=== PATIENT | male | born 1950 | race Caucasian/White ===

== ENCOUNTER 2017-03-23 13:45 | Inpatient (IN) ==
[2017-03-23] MEDS ORDERED: MAGNESIUM SULF RIDER 2 GM in PREMIX 1 EACH IV PRN (16:47)
[2017-03-23] MEDS ORDERED: ACETAMINOPHEN 325 MG TABLET PO PRN (16:47)
[2017-03-23] MEDS ORDERED: ZALEPLON 5 MG CAPSULE PO PRN (16:47)
[2017-03-23] MEDS ORDERED: ONDANSETRON 4 MG/2 ML VIAL IV PRN (16:47)
[2017-03-23] MEDS ORDERED: MAGNESIUM SULF RIDER 4 GM in PREMIX 1 EACH IV PRN (16:47)
[2017-03-23] MEDS ORDERED: traMADol 50 MG TABLET PO PRN (16:56)
[2017-03-23] MEDS ORDERED: ENOXAPARIN 40 MG/0.4 ML SYRINGE SUBCUT SCH (17:00)
[2017-03-23] MEDS: FUROSEMIDE 40 MG/4 ML VIAL IV SCH (17:31)
[2017-03-23 17:58] LABS: Basophils # 0.1 10*3/uL (0.0-0.2); Basophils % 0.9 % (0.0-0.8); Eosinophils # 0.1 10*3/uL (0.0-0.87); Hematocrit 48.3 VOL% (42.0-52.0); Hemoglobin 15.5 GM/DL (14.0-18.0); Immature Granulocytes % 0.3 %; Immature Granulocytes Absolute 0.03 #; Lymphocytes # 2.2 10*3/uL (1.4-4.0); Lymphocytes % 20.5 % (21.2-54.2); Mean Corpuscular HGB Conc 32.1 GM/DL (32-36); Mean Corpuscular Hemoglobin 28 PG (27-34); Mean Corpuscular Volume 88.5 FL (87-102); Mean Platelet Volume 11.2 FL (9.6-12.0); Monocytes # 1.1 10*3/uL (0.11-0.8); Monocytes % 10.3 % (1.7-12.7); Neutrophils # 7.2 10*3/uL (1.4-7.4); Platelet Count 260 T/CUMM (130-400); Red Blood Count 5.46 MC/CUMM (3.8-5.5); Red Cell Distribution Width 13.5 % (9.3-17.3); White Blood Count 10.7 T/CUMM (4-12)
[2017-03-23 18:09] LABS: INR 1.8; PT Patient Result 19.5 SECS
[2017-03-23 18:34] LABS: Alanine Aminotransferase 83 U/L (16-61); Albumin 3.8 G/DL (3.4-5.0); Alkaline Phosphatase 71 U/L (45-117); Aspartate Amino Transferase 86 U/L (0-37); Blood Urea Nitrogen 43 MG/DL (7-18); Calcium 9.2 MG/DL (8.5-10.1); Glucose 100 MG/DL (74-106); Osmolality,Calculated 289.4 MOS/KG (273-304); Potassium 5.2 MMOL/L (3.5-5.1); Sodium 140 MMOL/L (136-145); Troponin I Only 0.075 NG/ML (0.00-0.045)
--- NOTE | 2017-03-23 20:12 | XRay Report ---
History: Shortness of breath Date: 03/23/2017 Study: Chest x-ray AP portable Comparison exam: December 11, 2013 chest x-ray There is cardiomegaly. The pulmonary vasculature is upper normal. The mediastinal contours are unremarkable. The lungs and pleural spaces are clear. Numerous old rib fractures are noted on the left. Impression: Cardiomegaly without overt CHF. No definite acute process PROCEDURE INTERPRETED AT [facility] DEPARTMENT OF RADIOLOGY Final Report Signed by: Dr. Becca Lopez
[2017-03-23] MEDS: APIXABAN 5 MG TABLET PO SCH (21:15)
[2017-03-23] MEDS: METOPROLOL TARTRATE 25 MG TABLET PO SCH (21:16)
[2017-03-24 01:16] LABS: Basophils # 0.1 10*3/uL (0.0-0.2); Basophils % 0.7 % (0.0-0.8); Eosinophils # 0.2 10*3/uL (0.0-0.87); Eosinophils % 1.8 % (0.00-10.9); Hematocrit 41.3 VOL% (42.0-52.0); Hemoglobin 13.7 GM/DL (14.0-18.0); Immature Granulocytes % 0.2 %; Immature Granulocytes Absolute 0.02 #; Lymphocytes # 1.9 10*3/uL (1.4-4.0); Lymphocytes % 22.4 % (21.2-54.2); Mean Corpuscular HGB Conc 33.2 GM/DL (32-36); Mean Corpuscular Hemoglobin 29 PG (27-34); Monocytes # 0.9 10*3/uL (0.11-0.8); Monocytes % 10.6 % (1.7-12.7); Neutrophils # 5.5 10*3/uL (1.4-7.4); Neutrophils % 64.3 % (38.7-73.9); Platelet Count 215 T/CUMM (130-400); Red Cell Distribution Width 13.5 % (9.3-17.3); White Blood Count 8.5 T/CUMM (4-12)
[2017-03-24 01:54] LABS: Albumin 3.4 G/DL (3.4-5.0); Bilirubin,Total 1.1 MG/DL (0.2-1.0); Calcium 8.8 MG/DL (8.5-10.1); Osmolality,Calculated 285.7 MOS/KG (273-304); Potassium 3.8 MMOL/L (3.5-5.1); Risk Ratio 2.57; Total Protein 6.3 G/DL (6.4-8.3); VLDL CHOLESTEROL 13.2 MG/DL
[2017-03-24 02:10] LABS: Troponin I Only 0.069 NG/ML (0.00-0.045)
--- NOTE | 2017-03-24 06:34 | XRay Report ---
XR chest 1V portable Indication: Shortness of breath Comparison: Chest x-ray 03/23/2017 Technique: Portable AP chest was performed. Findings: The heart size appears mildly to moderately enlarged, stable. The mediastinal contour and hilar structures demonstrate no significant abnormalities. Lungs are clear. Bones and soft tissues demonstrate no evidence of acute pathology. Multiple remote posterior left rib fractures are stable. Impression: 1. No evidence of acute pathology. 03/24/2017 6:31 AM PROCEDURE INTERPRETED AT [facility] DEPARTMENT OF RADIOLOGY Final Report Signed by: Dr. Miquel Medina
--- NOTE | 2017-03-24 07:58 | EKG Report ---
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
[2017-03-24] MEDS: APIXABAN 5 MG TABLET PO SCH ×2 (09:10→20:23)
[2017-03-24] MEDS: LISINOPRIL 5 MG TABLET PO SCH (09:10)
[2017-03-24] MEDS: FUROSEMIDE 40 MG/4 ML VIAL IV SCH ×2 (09:11→16:10)
[2017-03-24] MEDS: PANTOPRAZOLE 40 MG TABLET PO SCH (09:11)
[2017-03-24] MEDS: POTASSIUM CHLORIDE 20 MEQ TABLET PO SCH (09:11)
[2017-03-24] MEDS: METOPROLOL TARTRATE 25 MG TABLET PO SCH ×2 (09:11→20:24)
[2017-03-24] MEDS: MAGNESIUM OXIDE 400 MG TABLET PO SCH (09:11)
--- NOTE | 2017-03-24 17:10 | Cardiology Progress Note ---
<Graciela Saleh E - Last Filed: 03/24/17 17:01> Assessment and Plan - Time spent with patient Time spent with patient: Less than 30 minutes (1) CHF (congestive heart failure) Status: Acute Assessment and plan: EF 10-15% per recent echocardiogram. Patient is receiving lasix, beta nettie, and floyd inhibitor. Creatinine is slowly improving and is down to 2.4 from 2.7 yesterday. Will continue to monitor BMP. Continue current plan of care. Current Visit: Yes (2) Pre-syncope Status: Acute Assessment and plan: Currently denies any further pre-syncopal episodes. Will continue to monitor. Current Visit: Yes (3) Atrial fibrillation Status: Acute Assessment and plan: Continue Eliquis. Will check hemoccult stools. Patient reports has noticed recent hematochezia. H&H stable. No signs of overt bleeding at this time. Current Visit: Yes (4) Mitral regurgitation Status: Acute Assessment and plan: Echocardiogram done 03/22/17 revealed mild to moderate mitral regurgitation. Current Visit: Yes (5) Aortic insufficiency Status: Acute Assessment and plan: Echocardiogram done 03/22/17 revealed mild aortic insufficiency. 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 Royal was sent from Dr. Harvey's clinic yesterday afternoon for further evaluation and management of severe LV dysfunction. He was noted to have EF of 10-15% per recent echocardiogram. He has never undergone heart catheterization and will need this done at some point in the future. His creatinine is currently 2.4 and he has difficulties lying flat. We will continue to maximize his medical therapy and plan for heart catheterization in the near future. Today , he is borderline hypotensive and is in atrial fibrillation with moderately well controlled rate. Exam (Progress Note) - Constitutional Vitals: Period Temp Pulse Resp BP Sys/Haley Pulse Ox Last 24 Hr 97.5 F-98.4 F 68-115 18-20 100-124/60-80 94-99 Exam: General: Present: Appears Well, No Apparent Distress. Pleasant and cooperative. Appears comfortable. HEENT: Present: PERRL, Normocephaly, atraumatic. Mucus Membranes Moist. No jaundice noted. Conjunctiva moist and clear, sclerae anicteric Neck: Present: Supple Neck, Midline Trachea, No Masses, No Bruit, No tenderness Cardiac: Present: Regular Rate and Rhythm, No Murmur Lungs: Present: Clear to auscultation bilaterally, no wheeze, rhonchi, rales. Neuro: Present: Awake, alert, and oriented x3. Moves all extremities well without hemiparesis or paralysis. Grossly Intact. Absent: Resting Tremor, Essential Tremor Abdomen: Present: Soft, Active Bowel Sounds, No Masses, Non-Tender, nondistended. No abdominal bruit or thrill noted. Skin: Present: Clear. Absent: Rash, No skin breakdown. Back: Normal inspection, no vertebral tenderness. Musculoskeletal: Present: No Fluid Collection, No Pain, Normal Range of Motion Extremities: Present: Normal Gait, No Clubbing, No Cyanosis, Upper Extr. Pulses 2+, Lower Extr. Pulses 2+, No edema. Capillary refill less than 3 seconds. Result/EKG - Labs CBC & BMP: 03/24/17 01:01 03/24/17 01:01 Lab Results: I have reviewed the past 24 hour labs Labs: Laboratory Results - last 24 hr 03/23/17 03/23/17 03/23/17 17:34 17:34 17:34 WBC 10.7 RBC 5.46 Hgb 15.5 Hct 48.3 MCV 88.5 MCH 28 MCHC 32.1 RDW 13.5 Plt Count 260 MPV 11.2 Neut % (Auto) 67.0 Lymph % (Auto) 20.5 L [place] % (Auto) 10.3 Eos % (Auto) 1.0 Baso % (Auto) 0.9 H Neut # (Auto) 7.2 Lymph # (Auto) 2.2 [place] # (Auto) 1.1 H Eos # (Auto) 0.1 Baso # (Auto) 0.1 Immature Gran % 0.3 Nucleated RBC % 0.0 Immature Gran # 0.03 Nucleated RBCs # 0.00 INR PT Patient/Control Mix Sodium 140 Potassium 5.2 H Chloride 102 Carbon Dioxide 27 Anion Gap 16.2 H BUN 43 H Creatinine 2.70 H GFR Calculation 27 BUN/Creatinine Ratio 15.00 Glucose 100 Calculated Osmolality 289.4 Calcium 9.2 Magnesium Total Bilirubin 1.30 H AST 86 H ALT 83 H Alkaline Phosphatase 71 Total Creatine Kinase 98 CK-MB (CK-2) 3.0 Troponin I 0.075 H B-Natriuretic Peptide 1088 H Total Protein 7.0 Albumin 3.8 Globulin 3.2 Albumin/Globulin Ratio 1.1 Triglycerides Cholesterol LDL Cholesterol VLDL Cholesterol HDL Cholesterol Heart Disease Risk Ratio TSH 3rd Generation 4.490 H 03/23/17 03/23/17 03/24/17 17:34 23:54 01:01 WBC RBC Hgb Hct MCV MCH MCHC RDW Plt Count MPV Neut % (Auto) Lymph % (Auto) [place] % (Auto) Eos % (Auto) Baso % (Auto) Neut # (Auto) Lymph # (Auto) [place] # (Auto) Eos # (Auto) Baso # (Auto) Immature Gran % Nucleated RBC % Immature Gran # Nucleated RBCs # INR 1.8 PT Patient/Control Mix 19.5 Sodium Potassium Chloride Carbon Dioxide Anion Gap BUN Creatinine GFR Calculation BUN/Creatinine Ratio Glucose Calculated Osmolality Calcium Magnesium 2.0 Total Bilirubin AST ALT Alkaline Phosphatase Total Creatine Kinase 71 D CK-MB (CK-2) 2.1 Troponin I 0.069 H B-Natriuretic Peptide Total Protein Albumin Globulin Albumin/Globulin Ratio Triglycerides Cholesterol LDL Cholesterol VLDL Cholesterol HDL Cholesterol Heart Disease Risk Ratio TSH 3rd Generation 03/24/17 03/24/17 03/24/17 01:01 01:01 01:01 WBC 8.5 RBC 4.80 Hgb 13.7 L Hct 41.3 L MCV 86.0 L MCH 29 MCHC 33.2 RDW 13.5 Plt Count 215 MPV 11.0 Neut % (Auto) 64.3 Lymph % (Auto) 22.4 [place] % (Auto) 10.6 Eos % (Auto) 1.8 Baso % (Auto) 0.7 Neut # (Auto) 5.5 Lymph # (Auto) 1.9 [place] # (Auto) 0.9 H Eos # (Auto) 0.2 Baso # (Auto) 0.1 Immature Gran % 0.2 Nucleated RBC % 0.0 Immature Gran # 0.02 Nucleated RBCs # 0.00 INR PT Patient/Control Mix Sodium 138 Potassium 3.8 Chloride 102 Carbon Dioxide 27 Anion Gap 12.8 BUN 46 H Creatinine 2.40 H GFR Calculation 31 BUN/Creatinine Ratio 19.00 Glucose 78 Calculated Osmolality 285.7 Calcium 8.8 Magnesium Total Bilirubin 1.10 H AST 65 H ALT 70 H Alkaline Phosphatase 62 Total Creatine Kinase CK-MB (CK-2) Troponin I B-Natriuretic Peptide 1066 H Total Protein 6.3 L Albumin 3.4 Globulin 2.9 Albumin/Globulin Ratio 1.1 Triglycerides 66 Cholesterol 95 LDL Cholesterol 54.0 VLDL Cholesterol 13.2 HDL Cholesterol 37 L Heart Disease Risk Ratio 2.57 TSH 3rd Generation 03/24/17 09:18 WBC RBC Hgb Hct MCV MCH MCHC RDW Plt Count MPV Neut % (Auto) Lymph % (Auto) [place] % (Auto) Eos % (Auto) Baso % (Auto) Neut # (Auto) Lymph # (Auto) [place] # (Auto) Eos # (Auto) Baso # (Auto) Immature Gran % Nucleated RBC % Immature Gran # Nucleated RBCs # INR PT Patient/Control Mix Sodium Potassium Chloride Carbon Dioxide Anion Gap BUN Creatinine GFR Calculation BUN/Creatinine Ratio Glucose Calculated Osmolality Calcium Magnesium Total Bilirubin AST ALT Alkaline Phosphatase Total Creatine Kinase 73 CK-MB (CK-2) 2.1 Troponin I 0.090 H D B-Natriuretic Peptide Total Protein Albumin Globulin Albumin/Globulin Ratio Triglycerides Cholesterol LDL Cholesterol VLDL Cholesterol HDL Cholesterol Heart Disease Risk Ratio TSH 3rd Generation - EKG EKG results: interpreted by me EKG shows: atrial fibrillation <Jo Ann Hermosillo - Last Filed: 03/24/17 18:05> Cardiology - PN: Subj Interval history: I have personally interviewed and evaluated the patient, reviewed the chart and discussed medical decision-making with practitioner Delfino. I have read this note and agree with her documentation here in. His symptoms are much improved today, but he still cannot lay supine for long period of time. We will continue to optimize him from heart failure standpoint and he will eventually require cardiac catheterization. Exam (Progress Note) - Constitutional Vitals: Period Temp Pulse Resp BP Sys/Haley Pulse Ox Last 24 Hr 97.5 F-98.4 F 68-115 18-20 100-124/60-80 94-99 Result/EKG - Labs CBC & BMP: 03/24/17 01:01 03/24/17 01:01 Labs: Laboratory Results - last 24 hr 03/23/17 03/23/17 03/23/17 17:34 17:34 17:34 WBC RBC Hgb Hct MCV MCH MCHC RDW Plt Count MPV Neut % (Auto) Lymph % (Auto) [place] % (Auto) Eos % (Auto) Baso % (Auto) Neut # (Auto) Lymph # (Auto) [place] # (Auto) Eos # (Auto) Baso # (Auto) Immature Gran % Nucleated RBC % Immature Gran # Nucleated RBCs # INR 1.8 PT Patient/Control Mix 19.5 Sodium 140 Potassium 5.2 H Chloride 102 Carbon Dioxide 27 Anion Gap 16.2 H BUN 43 H Creatinine 2.70 H GFR Calculation 27 BUN/Creatinine Ratio 15.00 Glucose 100 Calculated Osmolality 289.4 Calcium 9.2 Magnesium Total Bilirubin 1.30 H AST 86 H ALT 83 H Alkaline Phosphatase 71 Total Creatine Kinase 98 CK-MB (CK-2) 3.0 Troponin I 0.075 H B-Natriuretic Peptide 1088 H Total Protein 7.0 Albumin 3.8 Globulin 3.2 Albumin/Globulin Ratio 1.1 Triglycerides Cholesterol LDL Cholesterol VLDL Cholesterol HDL Cholesterol Heart Disease Risk Ratio TSH 3rd Generation 4.490 H 03/23/17 03/24/17 03/24/17 23:54 01:01 01:01 WBC 8.5 RBC 4.80 Hgb 13.7 L Hct 41.3 L MCV 86.0 L MCH 29 MCHC 33.2 RDW 13.5 Plt Count 215 MPV 11.0 Neut % (Auto) 64.3 Lymph % (Auto) 22.4 [place] % (Auto) 10.6 Eos % (Auto) 1.8 Baso % (Auto) 0.7 Neut # (Auto) 5.5 Lymph # (Auto) 1.9 [place] # (Auto) 0.9 H Eos # (Auto) 0.2 Baso # (Auto) 0.1 Immature Gran % 0.2 Nucleated RBC % 0.0 Immature Gran # 0.02 Nucleated RBCs # 0.00 INR PT Patient/Control Mix Sodium Potassium Chloride Carbon Dioxide Anion Gap BUN Creatinine GFR Calculation BUN/Creatinine Ratio Glucose Calculated Osmolality Calcium Magnesium 2.0 Total Bilirubin AST ALT Alkaline Phosphatase Total Creatine Kinase 71 D CK-MB (CK-2) 2.1 Troponin I 0.069 H B-Natriuretic Peptide Total Protein Albumin Globulin Albumin/Globulin Ratio Triglycerides Cholesterol LDL Cholesterol VLDL Cholesterol HDL Cholesterol Heart Disease Risk Ratio TSH 3rd Generation 03/24/17 03/24/17 03/24/17 01:01 01:01 09:18 WBC RBC Hgb Hct MCV MCH MCHC RDW Plt Count MPV Neut % (Auto) Lymph % (Auto) [place] % (Auto) Eos % (Auto) Baso % (Auto) Neut # (Auto) Lymph # (Auto) [place] # (Auto) Eos # (Auto) Baso # (Auto) Immature Gran % Nucleated RBC % Immature Gran # Nucleated RBCs # INR PT Patient/Control Mix Sodium 138 Potassium 3.8 Chloride 102 Carbon Dioxide 27 Anion Gap 12.8 BUN 46 H Creatinine 2.40 H GFR Calculation 31 BUN/Creatinine Ratio 19.00 Glucose 78 Calculated Osmolality 285.7 Calcium 8.8 Magnesium Total Bilirubin 1.10 H AST 65 H ALT 70 H Alkaline Phosphatase 62 Total Creatine Kinase 73 CK-MB (CK-2) 2.1 Troponin I 0.090 H D B-Natriuretic Peptide 1066 H Total Protein 6.3 L Albumin 3.4 Globulin 2.9 Albumin/Globulin Ratio 1.1 Triglycerides 66 Cholesterol 95 LDL Cholesterol 54.0 VLDL Cholesterol 13.2 HDL Cholesterol 37 L Heart Disease Risk Ratio 2.57 TSH 3rd Generation
[2017-03-24] MEDS: ACETYLCYSTEINE 600 MG CAPSULE PO SCH (20:23)
[2017-03-24] MEDS: DOCUSATE SODIUM 100 MG CAPSULE PO PRN (20:24)
[2017-03-25 06:37] LABS: Basophils # 0.1 10*3/uL (0.0-0.2); Basophils % 1.1 % (0.0-0.8); Eosinophils # 0.2 10*3/uL (0.0-0.87); Eosinophils % 3.2 % (0.00-10.9); Hematocrit 43.3 VOL% (42.0-52.0); Hemoglobin 14.2 GM/DL (14.0-18.0); Immature Granulocytes % 0.3 %; Immature Granulocytes Absolute 0.02 #; Lymphocytes # 2.2 10*3/uL (1.4-4.0); Lymphocytes % 29.9 % (21.2-54.2); Mean Corpuscular HGB Conc 32.8 GM/DL (32-36); Mean Corpuscular Hemoglobin 29 PG (27-34); Mean Corpuscular Volume 86.8 FL (87-102); Monocytes # 0.8 10*3/uL (0.11-0.8); Neutrophils % 54.5 % (38.7-73.9); Platelet Count 219 T/CUMM (130-400); Red Blood Count 4.99 MC/CUMM (3.8-5.5); Red Cell Distribution Width 13.3 % (9.3-17.3); White Blood Count 7.3 T/CUMM (4-12)
[2017-03-25 07:09] LABS: Calcium 8.6 MG/DL (8.5-10.1); Magnesium 2.2 MG/DL (1.8-2.4); Osmolality,Calculated 286.5 MOS/KG (273-304); Potassium 3.6 MMOL/L (3.5-5.1)
[2017-03-25] MEDS: DOCUSATE SODIUM 100 MG CAPSULE PO PRN (08:51)
[2017-03-25] MEDS: ACETYLCYSTEINE 600 MG CAPSULE PO SCH ×2 (08:51→20:45)
[2017-03-25] MEDS: MAGNESIUM OXIDE 400 MG TABLET PO SCH (08:51)
[2017-03-25] MEDS: POTASSIUM CHLORIDE 20 MEQ TABLET PO SCH (08:52)
[2017-03-25] MEDS: PANTOPRAZOLE 40 MG TABLET PO SCH (08:52)
[2017-03-25] MEDS: METOPROLOL TARTRATE 25 MG TABLET PO SCH ×2 (08:52→20:45)
[2017-03-25] MEDS: FUROSEMIDE 40 MG/4 ML VIAL IV SCH ×2 (08:52→16:16)
[2017-03-25] MEDS: LISINOPRIL 5 MG TABLET PO SCH (08:52)
[2017-03-25] MEDS: APIXABAN 5 MG TABLET PO SCH ×2 (08:52→20:46)
--- NOTE | 2017-03-25 11:32 | Cardiology Progress Note ---
<Graciela Saleh E - Last Filed: 03/25/17 11:27> Assessment and Plan - Time spent with patient Time spent with patient: Less than 30 minutes (1) CHF (congestive heart failure) Status: Acute Assessment and plan: EF 10-15% per recent echocardiogram. Patient is receiving lasix, beta nettie, and ann inhibitor. Medication adjustments are limited due to borderline hypotension. Creatinine remains at 2.4 today. Will continue to monitor BMP. Continue current plan of care. Current Visit: Yes (2) Pre-syncope Status: Acute Assessment and plan: Currently denies any further pre-syncopal episodes. Will continue to monitor. Current Visit: Yes (3) Atrial fibrillation Status: Acute Assessment and plan: Continue Eliquis. Will check hemoccult stools. Patient reports has noticed recent hematochezia. H&H stable. No signs of overt bleeding at this time. Current Visit: Yes (4) Mitral regurgitation Status: Acute Assessment and plan: Echocardiogram done 03/22/17 revealed mild to moderate mitral regurgitation. Current Visit: Yes (5) Aortic insufficiency Status: Acute Assessment and plan: Echocardiogram done 03/22/17 revealed mild aortic insufficiency. 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 Royal was sent from Dr. Harvey's clinic on 03/23/2017 for further evaluation and management of severe LV dysfunction. He was noted to have an EF of 10-15% per recent echocardiogram. He tells me that recently he has been unable to do activities that he previously had no trouble doing. The plan is to optimize him from a heart failure standpoint and plan on cardiac catheterization sometime in the near future. He does have some renal insufficiency with creatinine hovering around 2.4. He continues to have some difficulties with lying flat for an extended period of time. We will continue to maximize medical therapy. His borderline hypotension limits the medications we are able to use. Is currently on low-dose ANN inhibitor, beta-nettie, Lasix , and Eliquis for chronic anticoagulation for his atrial fibrillation. He remains in atrial fibrillation with well-controlled rate. Exam (Progress Note) - Constitutional Vitals: Period Temp Pulse Resp BP Sys/Haley Pulse Ox Last 24 Hr 97 F-98.1 F 82-112 16-20 95-135/52-79 94-99 Exam: General: Present: Appears Well, No Apparent Distress. Pleasant and cooperative. Appears comfortable. HEENT: Present: PERRL, Normocephaly, atraumatic. Mucus Membranes Moist. No jaundice noted. Conjunctiva moist and clear, sclerae anicteric Neck: Present: Supple Neck, Midline Trachea, No Masses, No Bruit, No tenderness Cardiac: Present: Regular Rate and Rhythm, No Murmur Lungs: Present: Clear to auscultation bilaterally, no wheeze, rhonchi, rales. Neuro: Present: Awake, alert, and oriented x3. Moves all extremities well without hemiparesis or paralysis. Grossly Intact. Absent: Resting Tremor, Essential Tremor Abdomen: Present: Soft, Active Bowel Sounds, No Masses, Non-Tender, nondistended. No abdominal bruit or thrill noted. Skin: Present: Clear. Absent: Rash, No skin breakdown. Back: Normal inspection, no vertebral tenderness. Musculoskeletal: Present: No Fluid Collection, No Pain, Normal Range of Motion Extremities: Present: Normal Gait, No Clubbing, No Cyanosis, Upper Extr. Pulses 2+, Lower Extr. Pulses 2+, No edema. Capillary refill less than 3 seconds. Result/EKG - Labs CBC & BMP: 03/25/17 05:30 03/25/17 05:30 Lab Results: I have reviewed the past 24 hour labs Labs: Laboratory Results - last 24 hr 03/25/17 03/25/17 05:30 05:30 WBC 7.3 RBC 4.99 Hgb 14.2 Hct 43.3 MCV 86.8 L MCH 29 MCHC 32.8 RDW 13.3 Plt Count 219 MPV 11.0 Neut % (Auto) 54.5 Lymph % (Auto) 29.9 [place] % (Auto) 11.0 Eos % (Auto) 3.2 Baso % (Auto) 1.1 H Neut # (Auto) 4.0 Lymph # (Auto) 2.2 [place] # (Auto) 0.8 Eos # (Auto) 0.2 Baso # (Auto) 0.1 Immature Gran % 0.3 Nucleated RBC % 0.0 Immature Gran # 0.02 Nucleated RBCs # 0.00 Sodium 139 Potassium 3.6 Chloride 97 L Carbon Dioxide 32 Anion Gap 13.6 BUN 42 H Creatinine 2.40 H GFR Calculation 30 BUN/Creatinine Ratio 17.00 Glucose 75 Calculated Osmolality 286.5 Calcium 8.6 Magnesium 2.2 - EKG EKG results: interpreted by me EKG shows: atrial fibrillation <BayJo Ann - Last Filed: 03/25/17 16:12> Cardiology - PN: Subj Interval history: I have personally interviewed and evaluated the patient, reviewed the chart and discussed medical decision-making with practitioner Delfino. I have read this note and agree with her documentation here in. The patient in general is just feeling poorly, feels somewhat dizzy. I checked orthostatic vital signs, he was not orthostatic but his systolic blood pressure was in the high 90s initially. It is possible that we have diuresed him a little too rapidly. We are going to decrease his diuretic therapy. I am also going to stop his lisinopril due to the hypotension and see if this improves his symptoms of dizziness. We are treating him with Mucomyst for anticipation of left heart catheterization. Exam (Progress Note) - Constitutional Vitals: Period Temp Pulse Resp BP Sys/Haley Pulse Ox Last 24 Hr 96.9 F-97.9 F 82-109 16-18 94-135/52-76 94-99 Result/EKG - Labs CBC & BMP: 03/25/17 05:30 03/25/17 05:30 Labs: Laboratory Results - last 24 hr 03/25/17 03/25/17 05:30 05:30 WBC 7.3 RBC 4.99 Hgb 14.2 Hct 43.3 MCV 86.8 L MCH 29 MCHC 32.8 RDW 13.3 Plt Count 219 MPV 11.0 Neut % (Auto) 54.5 Lymph % (Auto) 29.9 [place] % (Auto) 11.0 Eos % (Auto) 3.2 Baso % (Auto) 1.1 H Neut # (Auto) 4.0 Lymph # (Auto) 2.2 [place] # (Auto) 0.8 Eos # (Auto) 0.2 Baso # (Auto) 0.1 Immature Gran % 0.3 Nucleated RBC % 0.0 Immature Gran # 0.02 Nucleated RBCs # 0.00 Sodium 139 Potassium 3.6 Chloride 97 L Carbon Dioxide 32 Anion Gap 13.6 BUN 42 H Creatinine 2.40 H GFR Calculation 30 BUN/Creatinine Ratio 17.00 Glucose 75 Calculated Osmolality 286.5 Calcium 8.6 Magnesium 2.2
[2017-03-26 04:39] LABS: Basophils # 0.1 10*3/uL (0.0-0.2); Basophils % 0.9 % (0.0-0.8); Eosinophils # 0.3 10*3/uL (0.0-0.87); Eosinophils % 3.6 % (0.00-10.9); Hematocrit 42.7 VOL% (42.0-52.0); Hemoglobin 14.1 GM/DL (14.0-18.0); Immature Granulocytes % 0.4 %; Immature Granulocytes Absolute 0.03 #; Lymphocytes # 2.3 10*3/uL (1.4-4.0); Lymphocytes % 32.5 % (21.2-54.2); Mean Corpuscular Hemoglobin 28 PG (27-34); Mean Corpuscular Volume 85.1 FL (87-102); Mean Platelet Volume 10.6 FL (9.6-12.0); Monocytes # 0.8 10*3/uL (0.11-0.8); Monocytes % 11.4 % (1.7-12.7); Neutrophils # 3.6 10*3/uL (1.4-7.4); Neutrophils % 51.2 % (38.7-73.9); Platelet Count 206 T/CUMM (130-400); Red Blood Count 5.02 MC/CUMM (3.8-5.5); Red Cell Distribution Width 13.2 % (9.3-17.3)
[2017-03-26 05:09] LABS: Calcium 8.8 MG/DL (8.5-10.1); Magnesium 2.3 MG/DL (1.8-2.4); Potassium 3.5 MMOL/L (3.5-5.1)
[2017-03-26 05:11] LABS: % Iron Saturation 12.6 % (18-50); Free T4 (Free Thyroxine) 1.26 NG/DL (0.76-1.46)
[2017-03-26 06:33] LABS: Folate 6.1 NG/ML (5.4-24.0)
--- NOTE | 2017-03-26 08:11 | EKG Report ---
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
[2017-03-26] MEDS ORDERED: FUROSEMIDE 80 MG TABLET PO SCH (09:00)
[2017-03-26] MEDS: APIXABAN 5 MG TABLET PO SCH (09:50)
[2017-03-26] MEDS: POTASSIUM CHLORIDE 20 MEQ TABLET PO SCH (09:52)
[2017-03-26] MEDS: MAGNESIUM OXIDE 400 MG TABLET PO SCH (09:52)
[2017-03-26] MEDS: METOPROLOL TARTRATE 25 MG TABLET PO SCH (09:52)
[2017-03-26] MEDS: PANTOPRAZOLE 40 MG TABLET PO SCH (09:53)
[2017-03-26] MEDS ORDERED: APIXABAN 5 MG TABLET PO ONE (10:23)
[2017-03-26] MEDS: ACETYLCYSTEINE 600 MG CAPSULE PO SCH (10:24)
--- NOTE | 2017-03-26 11:09 | Discharge Summary ---
Hospital Course - Hospital Course Hospital Course: The patient is a 66-year-old male with history of atrial fibrillation, who was admitted to the hospital by Dr. 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 He had failed outpatient therapy. The patient was admitted and diuresed, responded very quickly to the intravenous Lasix. Clinically was much improved although he did begin to experience some dizziness and weakness. We discontinued his ANN inhibitor and his symptoms appear to improve. He was noted to have some renal insufficiency, the chronicity is unknown. It improved mildly during his hospital stay. We discussed maintaining him in the hospital until Tuesday for cardiac catheterization but the patient would like to go home because he does not like being in the hospital and thinks that this is worse for him. He is not having any orthopnea at this point and certainly has no peripheral edema. He is being discharged home in stable condition and we will have him call the clinic on Tuesday to determine the timing of his cardiac catheterization with Dr. Harvey. Discharge Plan - Discharge Data Disposition: Disch To Home/Self Care Condition at Discharge: Stable Hygiene: no restrictions Driving: no restrictions - Discharge Medications New Furosemide Tab [Lasix Tab] 80 mg PO DAILY #30 tablet Continue Apixaban [Eliquis] 5 mg PO BID Omeprazole 20 mg PO DAILY Glucosamine 500 mg PO BID Potassium Chloride 10 meq PO BID Metoprolol Tartrate Tab [Lopressor Tab] 25 mg PO BID Tramadol HCl [Tramadol Tab] 50 mg PO Q6H PRN PRN Reason: Pain Magnesium 250 mg PO DAILY Discontinued Furosemide Tab [Lasix Tab] 40 mg PO DAILY - Follow Up or Referral Follow Up: Sebastian Harvey MD [Physician] - 1 Week - Forms/Instructions Additional Discharge Instructions: BMP and Mg prior to f/u visit with Dr. Harvey Exam - Constitutional Vitals: Period Temp Pulse Resp BP Sys/Haley Pulse Ox Last 24 Hr 96.9 F-98.2 F 88-119 16-20 90-113/48-73 91-99 Exam: General appearance: normal weight, no acute distress - Head Head exam: Present: normal inspection, normocephalic, atraumatic. Absent: hematoma, laceration - Eye Eye exam: Present: EOMI. Absent: conjunctival injection, nystagmus, periorbital swelling, scleral icterus, laceration to eyelids Pupils: Present: PERRL. Absent: constricted, dilated, fixed, irregular, unequal - ENT ENT exam: Present: normal exam, normal external ear exam - Neck Neck exam: Present: normal inspection. Absent: lymphadenopathy, meningismus, tenderness, thyromegaly - Respiratory Respiratory exam: Present: clear to auscultation bilaterally. Absent: accessory muscle use, chest wall tenderness - Cardiovascular Cardiovascular exam: Present: regular rate and rhythm. Absent: carotid bruit, gallop, JVD, rubs - GI/Abdominal GI/Abdominal exam: Present: normal bowel sounds, soft. Absent: distended, firm , guarding, hernia, mass, tenderness, rebound. - Extremities Exam Extremities exam: Present: normal inspection, normal capillary refill. Absent: calf tenderness, edema - Back Exam Back exam: Present: normal inspection. Absent: muscle spasm, vertebral tenderness - Neurological Exam Neurological exam: Present: alert, oriented X3, grossly intact without resting or intention tremor - Psychiatric Psychiatric exam: Present: normal affect, normal mood - Skin Skin exam: Present: normal color, warm, dry, intact. Absent: cyanosis, diaphoretic, rash, urticaria Discharge Results Procedures and tests throughout hospitalization: Pending Orders 03/24/17 Occult Blood, Stool Routine 03/27/17 04:00 BMP w/ Mg [Basic Metabolic Panel w/Mg] IN AM CBC [Comp Blood Count Auto Diff] IN AM 03/28/17 04:00 BMP w/ Mg [Basic Metabolic Panel w/Mg] IN AM CBC [Comp Blood Count Auto Diff] IN AM Labs on day of discharge: Labs from last 24 hours 03/26/17 03/26/17 03/26/17 04:22 04:22 04:22 WBC RBC Hgb Hct MCV MCH MCHC RDW Plt Count MPV Neut % (Auto) Lymph % (Auto) [place] % (Auto) Eos % (Auto) Baso % (Auto) Neut # (Auto) Lymph # (Auto) [place] # (Auto) Eos # (Auto) Baso # (Auto) Immature Gran % Nucleated RBC % Immature Gran # Nucleated RBCs # Sodium 136 Potassium 3.5 Chloride 97 L Carbon Dioxide 30 Anion Gap 12.5 BUN 42 H Creatinine 1.80 H GFR Calculation 43 BUN/Creatinine Ratio 23.00 H Glucose 79 Calculated Osmolality 281.0 Calcium 8.8 Magnesium 2.3 Iron 44 L TIBC 349 % Saturation 12.6 L B-Natriuretic Peptide 468 H Vitamin B12 1211 H Folate 6.1 Free T4 1.26 03/26/17 04:22 WBC 7.0 RBC 5.02 Hgb 14.1 Hct 42.7 MCV 85.1 L MCH 28 MCHC 33.0 RDW 13.2 Plt Count 206 MPV 10.6 Neut % (Auto) 51.2 Lymph % (Auto) 32.5 [place] % (Auto) 11.4 Eos % (Auto) 3.6 Baso % (Auto) 0.9 H Neut # (Auto) 3.6 Lymph # (Auto) 2.3 [place] # (Auto) 0.8 Eos # (Auto) 0.3 Baso # (Auto) 0.1 Immature Gran % 0.4 Nucleated RBC % 0.0 Immature Gran # 0.03 Nucleated RBCs # 0.00 Sodium Potassium Chloride Carbon Dioxide Anion Gap BUN Creatinine GFR Calculation BUN/Creatinine Ratio Glucose Calculated Osmolality Calcium Magnesium Iron TIBC % Saturation B-Natriuretic Peptide Vitamin B12 Folate Free T4 DS: Provider Date of admission: 03/24/17 14:00 Primary care physician: Ailyn Vleiz Attending physician on admission: Jo Ann Hermosillo, Consults: 03/23/17 19:44 Consult to Pharmacy [CONS] Routine Reason for Pharmacy Consult: Adjust Meds Renal Funct Discharging clinician: Jo Ann Hermosillo, Expected date of discharge: 03/26/17
[2017-03-26 12:17] VITALS: BP 127/72
--- NOTE | 2017-04-12 09:34 | Physician Query Form ---
CLICK EDIT DOCUMENT TO SELECT QUERY ANSWER --> OK --> SIGN Cassie Mcclellan RN Clinical Stewarding Supervisor W) [phone] (f) [phone] [email or web address] PROVIDERS: Make your selection(s) from the choices in EACH section by typing an "x" and enter comments in the comment section. Please use your independent medical judgment in providing your response. This request does not imply that any particular answer is desired or expected. CLINICAL INDICATORS: (Providers should not edit this section) Based on documentation of "Acute CHF" Echo shows "EF 10-15%. Diastolic function is indeterminate." BNP 1088 Treated with IV Lasix. Please provide further specificity regarding CHF. ACUITY: ( x) Acute ( ) Chronic ( ) Acute on Chronic ( ) Clinicallly unable to determine TYPE: (x ) Systolic (HFrEF - heart failure with reduced systolic function/EF) ( ) Diastolic (HFpEF - heart failure with preserved systolic function/EF) ( ) Combined Systolic/Diastolic ( ) Other, please specify: ( ) Clinically unable to determine ( ) The patient does NOT have CHF COMMENTS: PLEASE ALSO DOCUMENT RESPONSE IN PROGRESS NOTES AND/OR DISCHARGE SUMMARY Use of terms such as suspected, likely, or probable (associated with a specific diagnosis that is being evaluated, monitored, or treated as if it exists) are acceptable and can be restated in the discharge summary if not ruled out. MTDD
== END 2017-03-26 12:33 | disposition home or self-care (01) | DRG 308 ==
LOC: N.TELES
PROVIDERS: ADMIT Internal Medicine Cardiovascular Disease; ATTEND Internal Medicine Cardiovascular Disease

== ENCOUNTER 2017-06-06 08:00 | Inpatient (IN) ==
[~2017-06-06 08:00] MED LIST: ACETAMINOPHEN 325 MG TABLET PO PRN; DOCUSATE SODIUM 100 MG CAPSULE PO PRN; LACTULOSE 20 GM/30 ML UDCUP PO PRN; MAGNESIUM SULF RIDER 2 GM in PREMIX 1 EACH IV PRN; MAGNESIUM SULF RIDER 4 GM in PREMIX 1 EACH IV PRN; ONDANSETRON 4 MG/2 ML VIAL IV PRN; POTASSIUM CHLORIDE 20 MEQ/15 ML UDCUP PER TUBE PRN; PROMETHAZINE 25 MG TABLET PO PRN; ZALEPLON 5 MG CAPSULE PO PRN; guaiFENesin/DM ER 600-30 MG TABLET PO PRN
--- NOTE | 2017-06-06 08:50 | EKG Report ---
Stationary ECG Study [facility] Test Date: 06/06/2017 8:49:35 AM Pat Name: JAYCE OSWALD Department: Room: 282 Gender: M Bait Maker: ADDISON : 1950 Requested by: Sebastian Harvey Order Number: [id number] Reading MD: AZEB CHAWLA Intervals [place] Rate: 84 P: 999 [place]: 0 QRS: -31 QRSD: 107 T: 15 QT: 396 QTc: 437 Interpretive Statements ATRIAL FIBRILLATION MINIMAL LEFT AXIS DEVIATION MINIMAL VOLTAGE CRITERIA FOR LVH, CONSIDER NORMAL VARIANT MODERATE T-WAVE ABNORMALITY, CONSIDER ANTERIOR ISCHEMIA Electronically Signed On 06-06-17 10:27:02 CDT by AZEB CHAWLA [email or web address]
[2017-06-06] MEDS: SOTALOL 80 MG TABLET PO SCH ×4 (09:28→22:30)
--- NOTE | 2017-06-06 09:37 | Cardiology History & Physical ---
<Graciela Saleh E - Last Filed: 06/06/17 09:50> Assessment and Plan - Time spent with patient Time spent with patient: Greater than 30 minutes (due to assessment, plan, and documentation) (1) Atrial fibrillation Status: Acute Assessment and plan: See plan of care listed below. Current Visit: No (2) Nonischemic cardiomyopathy Status: Chronic Assessment and plan: See plan of care listed below. Current Visit: Yes (3) Renal insufficiency Status: Chronic Assessment and plan: See plan of care listed below. Current Visit: Yes (4) Mitral regurgitation Status: Chronic Assessment and plan: See plan of care listed below. Current Visit: No (5) Aortic insufficiency Status: Chronic Assessment and plan: See plan of care listed below. Current Visit: No History of Present Illness Chief complaint: dizziness, sotalol load History of present illness: Industrial Engineering Technician: Dr. Harvey PCP: Dr. Elis Nation ([place]) Mr. Royal is a 67 year old male with a past medical history of atrial fibrillation initially responding to rate control medicines. He also has a history of nonischemic cardiomyopathy with ejection fraction 10-15% and was started on lisinopril. He has aortic valve insufficiency and mitral insufficiency and reactive to amiodarone and lisinopril with hyperkalemia, renal insufficiency, and skin rash. Echocardiogram was repeated on June 01, 2017 and his EF had improved to the 25% range. He was also noted to have mild LVH, mild to moderate MR, mild AI, moderate TR, mild NV, and mild pulmonary hypertension. Mr. Royal was admitted today for sotalol load. If this is unsuccessful, we anticipate attempted cardioversion prior to his discharge. He will also need evaluation for an ICD. Recently, he has been doing reasonably well. He has had some orthostatic symptoms when he stands. He denies any chest pain or palpitations. He continues to have dyspnea on exertion. He has also had some blurry vision and double vision for the past week. Lab work done on 05/26/2017 revealed creatinine of 1.8, sodium 139, potassium 4.8 , AST 22, ALT 19, WBC 9.7, hemoglobin 15.7, hematocrit 48, platelet count 185. EKG on admission shows atrial fibrillation with well controlled rate. ASSESSMENT/PLAN: 1. ATRIAL FIBRILLATION - Patient is currently in atrial fibrillation with well- controlled rate. He was admitted to the hospital for sotalol load. At this fails to convert him to normal sinus rhythm, anticipate attempting cardioversion prior to discharge. 2. NONISCHEMIC CARDIOMYOPATHY - In the past 2 months, patient's ejection fraction has improved from 10-15 percent to 25%. It is likely he will need evaluation for ICD placement. Will continue beta nettie and anticipate starting ANN/ARB depending on renal function. 3. RENAL INSUFFICIENCY - Will monitor BMP. Creatinine 1.8 last week. 4. AORTIC INSUFFICIENCY 5. MITRAL INSUFFICIENCY Home Medications Medication Instructions Recorded Confirmed Type Apixaban [Eliquis] 5 mg PO BID 03/23/17 06/06/17 History Glucosamine 500 mg PO BID 03/23/17 06/06/17 History Magnesium 250 mg PO DAILY 03/23/17 06/06/17 History Metoprolol Tartrate Tab [Lopressor 50 mg PO BID 03/23/17 06/06/17 History Tab] Omeprazole 20 mg PO DAILY 03/23/17 06/06/17 History Tramadol HCl [Tramadol Tab] 50 mg PO Q6H PRN 03/23/17 06/06/17 History Colchicine 0.6 mg PO DIRECTED 04/07/17 06/06/17 History Furosemide Tab [Lasix Tab] 40 mg PO DAILY 06/06/17 06/06/17 History Allergies Allergy/AdvReac Type Severity Reaction Status Date / Time No Known Allergies Allergy Verified 03/23/17 17:00 Review of systems: - Constitutional: Present: fatigue, As per HPI. Absent: anorexia, chills, daytime sleepiness, excessive sweating, fever(s), frequent falls, headache(s), increased appetite, lethargy, malaise, night sweats, stops breathing during sleep, weakness, weight gain, weight loss. - EENT Eyes: Present: blurry vision, diplopia, As per HPI. Absent: loss of vision Ears: Present: As per HPI. Absent: decreased hearing, ear discharge, ear pain Nose, mouth and throat: Present: As per HPI. Absent: dysphagia, epistaxis, headache(s), hoarseness, lip swelling, nasal congestion, neck mass, neck pain, sinus pressure, sore throat, throat swelling, tongue swelling, vertigo - Cardiovascular: Present: dyspnea on exertion, as per HPI. Absent: chest pain at rest, chest pain with activity, dyspnea, edema, claudication, diaphoresis, radiating jaw, neck or arm pain, lightheadedness, orthopnea, palpitations, PND - Respiratory: Present: dyspnea on exertion, as per HPI. Absent: dyspnea, cough , hemoptysis, wheezing, snoring, pain on inspiration - Gastrointestinal: Present: As per HPI. Absent: abdominal pain, bloating, change in bowel habits, constipation, diarrhea, heartburn, hematemesis, hematochezia, loose stools, melena, nausea, vomiting - Genitourinary: Present: As per HPI. Absent: difficulty urinating, dysuria, flank pain, hematuria, nocturia, urinary frequency, urinary incontinence - Musculoskeletal: Present: As per HPI. Absent: arthralgias, back pain, joint swelling, limited range of motion, muscle cramps, muscle weakness, myalgias - Neurological: Present: dizziness, As per HPI. Absent: abnormal gait, abnormal speech, behavioral changes, confusion, convulsions, disequilibrium, focal weakness, frequent falls, headache(s), memory loss, numbness, paresthesias, radicular pain, syncope, tremor(s) - Psychiatric: Present: As per HPI. Absent: anxiety, confusion, depression, panic attacks - Endocrine: Present: fatigue, As per HPI. Absent: cold intolerance, heat intolerance, polydipsia, polyphagia - Hematologic/Lymphatic: Present: As per HPI. Absent: easy bleeding, easy bruising, lymphadenopathy Medical,Surgical,& Family Hx - Medical History Cardio: History of: Cardiac Dysrhythmia (AFIB), Cardiovascular Problems ( NONRHEUMATIC AORTIC VALVE INSUFFICIENCY, MITRAL VALVE REGURGITAION. EF 15%) Neurology: No history of: Seizures Musculoskeletal: History of: Back/Neck Problems - Surgical History Cardiac Surgeries: Patient Denies: Cardiac Catheterization Abdominal Surgeries: Patient denies: Abdominal Surgery Orthopedic Surgeries: Surgical HX of;: Orthopedic Surgery (KNEE AND BACK SURGERY ) - Family History Family History: Reports;: Family Cancer (BROTHER- COLON CA, SISTER-THYROID), Family Heart Disease (MOTHER) - Social History Smoking Status: Former smoker Frequency of Alcohol Use: None Type of Drug Use: None Marital Status: Single Lives With:: Alone Functional capacity: independent ambulation Cardiology Physical Exam - Constitutional Vitals: Vital Signs Temp Pulse Resp BP Pulse Ox 98.1 F 79 18 128/84 97 06/06/17 08:42 06/06/17 08:42 06/06/17 08:42 06/06/17 08:42 06/06/17 08:42 Intake and Output 06/05/17 06/06/17 06/06/17 22:59 06:59 14:59 Other: Weight 175 lb Patient Weight 06/07/17 06:59 Weight 175 lb Exam: General appearance: Pleasant and cooperative. Normal weight, no acute distress. - Head Head exam: Present: normal inspection, normocephalic, atraumatic. Absent: hematoma, laceration - Eye Eye exam: Present: EOMI. Absent: conjunctival injection, nystagmus, periorbital swelling, scleral icterus, laceration to eyelids Pupils: Present: PERRL. Absent: constricted, dilated, fixed, irregular, unequal - ENT ENT exam: Present: normal exam, normal external ear exam - Neck Neck exam: Present: normal inspection. Absent: lymphadenopathy, meningismus, tenderness, thyromegaly - Respiratory Respiratory exam: Present: clear to auscultation bilaterally. Absent: accessory muscle use, chest wall tenderness - Cardiovascular Cardiovascular exam: Present: Irregular rate and rhythm. Absent: carotid bruit , gallop, JVD, rubs, murmur - GI/Abdominal GI/Abdominal exam: Present: normal bowel sounds, soft. Absent: distended, firm , guarding, hernia, mass, tenderness, rebound. - Extremities Exam Extremities exam: Present: normal inspection, normal capillary refill. Upper extremity pulses 2+. Lower extremity pulses 2+. Absent: calf tenderness, edema -Musculoskeletal Exam Musculoskeletal: Present: No Fluid Collection, No Pain, Normal Range of Motion - Back Exam Back exam: Present: normal inspection. Absent: muscle spasm, vertebral tenderness - Neurological Exam Neurological exam: Present: alert, oriented X3, grossly intact without resting or essential tremor - Psychiatric Psychiatric exam: Present: normal affect, normal mood - Skin Skin exam: Present: normal color, warm, dry, intact. Absent: cyanosis, diaphoretic, rash, urticaria Result/EKG - Labs Lab Results: I have reviewed the past 24 hour labs - EKG EKG results: interpreted by me EKG shows: atrial fibrillation Quality Measures - VTE Contraindication to Pharmacological VTE Prophylaxis: Already on Theraputic Agent , No Prophylaxis Needed <Sebastian Harvey - Last Filed: 06/06/17 15:35> History of Present Illness History of present illness: Mr. Royal is a 67 year old male well known to me with a nonischemic cardiomyopathy atrial fibrillation now adequately anticoagulated and our plan is going to be to start him on sotalol anticipating conversion to sinus rhythm. If not we will proceed with an attempted cardioversion. Cardiology Physical Exam - Constitutional Vitals: Vital Signs Temp Pulse Resp BP Pulse Ox 97.7 F 68 22 121/77 97 06/06/17 11:47 06/06/17 11:47 06/06/17 11:47 06/06/17 11:47 06/06/17 11:47 Intake and Output 06/05/17 06/06/17 06/06/17 23:59 07:59 15:59 Other: Weight 79.379 kg Patient Weight 06/06/17 23:59 Weight 79.379 kg Result/EKG - Labs CBC & BMP: 06/06/17 09:51 06/06/17 09:51 Labs: Laboratory Results - last 24 hr 06/06/17 06/06/17 06/06/17 09:51 09:51 09:51 WBC 7.6 RBC 5.72 H Hgb 16.1 Hct 47.4 MCV 82.9 L MCH 28 MCHC 34.0 RDW 14.5 Plt Count 195 MPV 10.3 Neut % (Auto) 65.1 Lymph % (Auto) 23.4 [place] % (Auto) 6.9 Eos % (Auto) 3.4 Baso % (Auto) 0.8 Neut # (Auto) 4.9 Lymph # (Auto) 1.8 [place] # (Auto) 0.5 Eos # (Auto) 0.3 Baso # (Auto) 0.1 Immature Gran % 0.4 Nucleated RBC % 0.0 Immature Gran # 0.03 Nucleated RBCs # 0.00 INR PT Patient/Control Mix Sodium 140 Potassium 3.6 Chloride 102 Carbon Dioxide 33 H Anion Gap 8.6 BUN 31 H Creatinine 1.60 H GFR Calculation 49 BUN/Creatinine Ratio 19.00 Glucose 92 Calculated Osmolality 285.4 Calcium 9.1 Total Bilirubin 0.40 AST 18 ALT 26 Alkaline Phosphatase 64 B-Natriuretic Peptide 288 H Total Protein 6.9 Albumin 3.8 Globulin 3.1 Albumin/Globulin Ratio 1.2 06/06/17 09:51 WBC RBC Hgb Hct MCV MCH MCHC RDW Plt Count MPV Neut % (Auto) Lymph % (Auto) [place] % (Auto) Eos % (Auto) Baso % (Auto) Neut # (Auto) Lymph # (Auto) [place] # (Auto) Eos # (Auto) Baso # (Auto) Immature Gran % Nucleated RBC % Immature Gran # Nucleated RBCs # INR 1.1 PT Patient/Control Mix 11.9 D Sodium Potassium Chloride Carbon Dioxide Anion Gap BUN Creatinine GFR Calculation BUN/Creatinine Ratio Glucose Calculated Osmolality Calcium Total Bilirubin AST ALT Alkaline Phosphatase B-Natriuretic Peptide Total Protein Albumin Globulin Albumin/Globulin Ratio
[2017-06-06 10:09] LABS: Basophils # 0.1 10*3/uL (0.0-0.2); Basophils % 0.8 % (0.0-0.8); Eosinophils # 0.3 10*3/uL (0.0-0.87); Eosinophils % 3.4 % (0.00-10.9); Hematocrit 47.4 VOL% (42.0-52.0); Hemoglobin 16.1 GM/DL (14.0-18.0); Immature Granulocytes % 0.4 %; Immature Granulocytes Absolute 0.03 #; Lymphocytes # 1.8 10*3/uL (1.4-4.0); Lymphocytes % 23.4 % (21.2-54.2); Mean Corpuscular Hemoglobin 28 PG (27-34); Mean Corpuscular Volume 82.9 FL (87-102); Mean Platelet Volume 10.3 FL (9.6-12.0); Monocytes # 0.5 10*3/uL (0.11-0.8); Monocytes % 6.9 % (1.7-12.7); Neutrophils # 4.9 10*3/uL (1.4-7.4); Neutrophils % 65.1 % (38.7-73.9); Platelet Count 195 T/CUMM (130-400); Red Blood Count 5.72 MC/CUMM (3.8-5.5); Red Cell Distribution Width 14.5 % (9.3-17.3); White Blood Count 7.6 T/CUMM (4-12)
[2017-06-06 10:36] LABS: Albumin 3.8 G/DL (3.4-5.0); Bilirubin,Total 0.4 MG/DL (0.2-1.0); Calcium 9.1 MG/DL (8.5-10.1); Total Protein 6.9 G/DL (6.4-8.3)
[2017-06-06 10:37] LABS: Osmolality,Calculated 285.4 MOS/KG (273-304); Potassium 3.6 MMOL/L (3.5-5.1)
[2017-06-06 10:55] LABS: INR 1.1; PT Patient Result 11.9 SECS
[2017-06-06] MEDS: MAGNESIUM GLUCONATE 500 MG TABLET PO SCH (11:37)
[2017-06-06] MEDS: GLUCOSAMINE 500 MG TABLET PO SCH ×2 (11:38→22:30)
[2017-06-06] MEDS: APIXABAN 5 MG TABLET PO SCH ×2 (11:38→22:30)
[2017-06-06 18:56] LABS: Apearance,Urine CLEAR (Clear); Bilirubin,Urine Negative (Negative); Blood, Urine Small mg/dL (Negative); Glucose,Urine (UA) Negative (Negative); Ketones,Urine Negative (Negative); Mucus,Urine Occasional /LPF (Occasional); Nitrite,Urine Negative (Negative); Protein,Urine Negative; RBC,Urine 1 /HPF (0-4); Squamous Epithelial Cell,Urine Occasional /HPF (0-10); Urine Color Yellow (Yellow); Urine Specific Gravity 1.017 (1.001-1.035); Urine Urobilinogen < 2.0 EU/DL (0.2-1.0); WBC,Urine <1 /HPF (0-6)
[2017-06-07 05:55] LABS: Basophils # 0.1 10*3/uL (0.0-0.2); Basophils % 0.8 % (0.0-0.8); Eosinophils # 0.3 10*3/uL (0.0-0.87); Eosinophils % 3.7 % (0.00-10.9); Hematocrit 43.6 VOL% (42.0-52.0); Hemoglobin 14.3 GM/DL (14.0-18.0); Immature Granulocytes % 0.4 %; Immature Granulocytes Absolute 0.03 #; Lymphocytes # 2.4 10*3/uL (1.4-4.0); Lymphocytes % 33.1 % (21.2-54.2); Mean Corpuscular HGB Conc 32.8 GM/DL (32-36); Mean Corpuscular Hemoglobin 27 PG (27-34); Mean Corpuscular Volume 83.2 FL (87-102); Mean Platelet Volume 10.6 FL (9.6-12.0); Monocytes # 0.7 10*3/uL (0.11-0.8); Monocytes % 9.4 % (1.7-12.7); Neutrophils # 3.8 10*3/uL (1.4-7.4); Neutrophils % 52.6 % (38.7-73.9); Platelet Count 179 T/CUMM (130-400); Red Blood Count 5.24 MC/CUMM (3.8-5.5); Red Cell Distribution Width 14.6 % (9.3-17.3); White Blood Count 7.3 T/CUMM (4-12)
[2017-06-07 06:35] LABS: Calcium 9.1 MG/DL (8.5-10.1); Magnesium 1.9 MG/DL (1.8-2.4); Osmolality,Calculated 287.1 MOS/KG (273-304); Potassium 3.6 MMOL/L (3.5-5.1)
--- NOTE | 2017-06-07 07:38 | EKG Report ---
Stationary ECG Study [facility] Test Date: 06/07/2017 7:37:47 AM Pat Name: JAYCE OSWALD Department: Room: 282 Gender: M Expander: Robert : 1950 Requested by: Sebastian Harvey Order Number: [id number] Reading MD: LUIS ANGEL CRISTINA Intervals [place] Rate: 70 P: 999 [place]: 0 QRS: -33 QRSD: 106 T: -31 QT: 473 QTc: 493 Interpretive Statements ATRIAL FIBRILLATION at 70 bpm LEFT AXIS DEVIATION INCOMPLETE RIGHT BUNDLE BRANCH BLOCK NONSPECIFIC T WAVE ABNORMALITY Modestly prolonged QTc Electronically Signed On 06-07-17 08:35:55 CDT by LUIS ANGEL CRISTINA [email or web address]
--- NOTE | 2017-06-07 07:49 | History and Physical Update ---
Sedation H&P Update - History and Physical H&P was reviewed, the patient examined and there: are no changes in the patients condition since last H&P was completed. - Sedation Plan for Sedation: moderate Patient Consent: Procedure disscussed with patient and patinet has consented., Risks and benefits were discussed with patient,including infection,, bleeding, injury to surrounding structures, seizure, temporary nerve, Patient understands and accepts potential risks/benefits and agrees to, proceed. ASA Class: III Airway Assessment: Class III: Soft palate, base of uvula visible
[2017-06-07] MEDS: APIXABAN 5 MG TABLET PO SCH ×2 (08:30→21:53)
[2017-06-07] MEDS: MAGNESIUM GLUCONATE 500 MG TABLET PO SCH (08:30)
[2017-06-07] MEDS: SOTALOL 80 MG TABLET PO SCH (08:30)
[2017-06-07] MEDS: GLUCOSAMINE 500 MG TABLET PO SCH ×2 (08:30→21:52)
[2017-06-07] MEDS: COLCHICINE 0.6 MG TABLET PO SCH ×2 (13:33→16:08)
[2017-06-07] MEDS ORDERED: POTASSIUM CHLORIDE 20 MEQ/15 ML UDCUP PO ONE (14:33)
--- NOTE | 2017-06-07 15:31 | Cardiology Progress Note ---
Assessment and Plan (1) Atrial fibrillation Status: Acute Current Visit: No (2) Nonischemic cardiomyopathy Status: Chronic Current Visit: Yes (3) Renal insufficiency Status: Chronic Current Visit: Yes (4) Aortic insufficiency Status: Chronic Current Visit: No (5) Mitral regurgitation Status: Chronic Current Visit: No Cardiology - PN: Subj Interval history: Music Artist: Dr. Harvey PCP: Dr. Elis Nation ([place]) SUMMARY : Mr. Royal is a 67 year old male with a past medical history of atrial fibrillation initially responding to rate control medicines. He also has a history of nonischemic cardiomyopathy with ejection fraction 10-15% and was started on lisinopril. Echocardiogram was repeated on June 01, 2017 and his EF had improved to the 25% range. He was also noted to have mild LVH, mild to moderate MR, mild AI, moderate TR, mild MA, and mild pulmonary hypertension. Mr. Royal was admitted 06/06/17 for sotalol load. If this is unsuccessful, we anticipate attempted cardioversion prior to his discharge. EKG on admission shows atrial fibrillation with well controlled rate. JUNE 07, 2017 UPDATE - Patient was seen and examined on the telemetry unit. He is doing well without complaints. He remains in atrial fibrillation with a controlled ventricular response. He was admitted for sotalol load. Sotalol 80 mg twice daily was initiated at admission. However, overnight he developed bradycardia. Sotalol was then decreased to 80 mg daily. Today he has had no further bradycardia. Dr. Harvey plans to cardiovert him tomorrow morning. Will anticipate discharge home later tomorrow afternoon. Further plan and addendum to follow per Dr. Harvey. ASSESSMENT/PLAN: 1. ATRIAL FIBRILLATION - Patient is currently in atrial fibrillation with well- controlled rate. Sotalol was decreased to 80 mg daily due to episode of bradycardia overnight. Plan for cardioversion tomorrow and anticipate discharge home later tomorrow afternoon. 2. NONISCHEMIC CARDIOMYOPATHY - In the past 2 months, patient's ejection fraction has improved from 10-15% to 25%. It is likely he will need evaluation for ICD placement. Will continue beta nettie and consider starting ANN/ARB depending on renal function. Creatinine today 1.6. 3. RENAL INSUFFICIENCY - Will monitor BMP. Creatinine 1.6 today. 4. AORTIC INSUFFICIENCY - Continue current plan of care. 5. MITRAL INSUFFICIENCY - Continue current plan of care. Exam (Progress Note) - Constitutional Vitals: Period Temp Pulse Resp BP Sys/Haley Pulse Ox Last 24 Hr 97.5 F-98.1 F 60-79 18-20 100-127/66-80 96-100 Exam: General: Appears well with no apparent distress. Pleasant and cooperative. Appears comfortable. HEENT: PERRL, normocephalic, atraumatic. Mucous membranes moist. No jaundice noted. Conjunctiva moist and clear, sclerae anicteric Neck: No JVD/HJR, no thyromegaly or lymphadenopathy noted. No carotid bruit appreciated Cardiac: Irregular rhythm, controlled rate. No murmur rub or gallop. Lungs: Clear to auscultation without accessory muscle use to assist the respiratory pattern. Not requiring oxygen. Abdomen: Soft, bowel sounds normoactive. Nontender and nondistended. No abdominal bruit or thrill noted. No masses noted. Extremities: No clubbing, cyanosis noted. No edema noted. Upper extremity pulses 2+. Lower extremity pulses 2+. Capillary refill less than 3 seconds. Skin: No unusual lesions or rashes. No skin breakdown appreciated. Neuro: Awake, alert and oriented 3. Moves all extremities well without hemiparesis or paralysis. No essential tremor is appreciated. Result/EKG - Labs CBC & BMP: 06/07/17 04:43 06/07/17 04:43 Lab Results: I have reviewed the past 24 hour labs Labs: Laboratory Results - last 24 hr 06/06/17 06/07/17 06/07/17 Unknown 04:43 04:43 WBC 7.3 RBC 5.24 Hgb 14.3 Hct 43.6 MCV 83.2 L MCH 27 MCHC 32.8 RDW 14.6 Plt Count 179 MPV 10.6 Neut % (Auto) 52.6 Lymph % (Auto) 33.1 [place] % (Auto) 9.4 Eos % (Auto) 3.7 Baso % (Auto) 0.8 Neut # (Auto) 3.8 Lymph # (Auto) 2.4 [place] # (Auto) 0.7 Eos # (Auto) 0.3 Baso # (Auto) 0.1 Immature Gran % 0.4 Nucleated RBC % 0.0 Immature Gran # 0.03 Nucleated RBCs # 0.00 Sodium 142 Potassium 3.6 Chloride 103 Carbon Dioxide 32 Anion Gap 10.6 BUN 30 H Creatinine 1.60 H GFR Calculation 49 BUN/Creatinine Ratio 18.00 Glucose 86 Calculated Osmolality 287.1 Calcium 9.1 Magnesium 1.9 Urine Color Yellow Urine Appearance Clear Urine pH 5.0 Ur Specific [place] 1.017 Urine Protein Negative Urine Glucose (UA) Negative Urine Ketones Negative Urine Blood Small Urine Nitrate Negative Urine Bilirubin Negative Urine Urobilinogen < 2.0 H Urine Leukocytes Negative Urine RBC 1 Urine WBC <1 Ur Squamous Epith Cells Occasional Urine Mucus Occasional Ur Culture Indicated? Not indicated Quality Measures - VTE Contraindication to Pharmacological VTE Prophylaxis: Already on Theraputic Agent , No Prophylaxis Needed
[2017-06-08 05:20] LABS: Basophils # 0.1 10*3/uL (0.0-0.2); Eosinophils # 0.3 10*3/uL (0.0-0.87); Eosinophils % 3.4 % (0.00-10.9); Hematocrit 44.4 VOL% (42.0-52.0); Immature Granulocytes % 0.5 %; Immature Granulocytes Absolute 0.04 #; Lymphocytes # 2.7 10*3/uL (1.4-4.0); Lymphocytes % 37.5 % (21.2-54.2); Mean Corpuscular HGB Conc 33.8 GM/DL (32-36); Mean Corpuscular Hemoglobin 28 PG (27-34); Mean Corpuscular Volume 83.5 FL (87-102); Mean Platelet Volume 10.4 FL (9.6-12.0); Monocytes # 0.6 10*3/uL (0.11-0.8); Monocytes % 8.5 % (1.7-12.7); Neutrophils # 3.6 10*3/uL (1.4-7.4); Neutrophils % 49.1 % (38.7-73.9); Platelet Count 158 T/CUMM (130-400); Red Blood Count 5.32 MC/CUMM (3.8-5.5); Red Cell Distribution Width 14.7 % (9.3-17.3); White Blood Count 7.3 T/CUMM (4-12)
[2017-06-08 05:52] LABS: Calcium 8.9 MG/DL (8.5-10.1); Magnesium 1.9 MG/DL (1.8-2.4); Osmolality,Calculated 284.4 MOS/KG (273-304); Potassium 3.9 MMOL/L (3.5-5.1)
--- NOTE | 2017-06-08 09:36 | History and Physical Update ---
Sedation H&P Update - Dictation Physical: refer to scanned H&P - Sedation Plan for Sedation: moderate Patient Consent: Procedure disscussed with patient and patinet has consented., Risks and benefits were discussed with patient,including infection,, bleeding, injury to surrounding structures, seizure, temporary nerve, Patient understands and accepts potential risks/benefits and agrees to, proceed. Airway Assessment: Class III: Soft palate, base of uvula visible
--- NOTE | 2017-06-08 09:47 | Operative Note ---
Pre-op diagnosis: Atrial fibrillation Post-op diagnosis: same Procedure: Clinical summary: 67-year-old male with a cardiomyopathy presents with A. fib RVR and is now had adequate anticoagulation to the point we will proceed with direct current cardioversion. He has been on sotalol and has not converted and we will cardiovert him today. Description of procedure: Anesthesia was present for sedation. After adequate sedation was obtained the patient underwent direct current cardioversion with 200 W seconds of synchronized energy delivered in anteroposterior fashion. The patient was converted to sinus rhythm with bradycardia which is improving at the time of this dictation. He remained with stable vital signs and recovered without issue. He is stable and for transfer back to his [place]. Anesthesia: MAC Surgeon / Physician: Sebastian Harvey Specimens: none sent Condition: stable Disposition: floor Results - Labs CBC & BMP: 06/08/17 04:40 06/08/17 04:40 Discharge Plan - Discharge Medications No Action Apixaban [Eliquis] 5 mg PO BID Omeprazole 20 mg PO DAILY Glucosamine 500 mg PO BID Furosemide Tab [Lasix Tab] 40 mg PO DAILY Metoprolol Tartrate Tab [Lopressor Tab] 50 mg PO BID Tramadol HCl [Tramadol Tab] 50 mg PO Q6H PRN PRN Reason: Pain Magnesium 250 mg PO DAILY Colchicine 0.6 mg PO DIRECTED - Follow Up or Referral - Forms/Instructions
--- NOTE | 2017-06-08 09:51 | EKG Report ---
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
[2017-06-08] MEDS ORDERED: MIDAZOLAM 2 MG/2 ML VIAL ONE (09:58)
[2017-06-08] MEDS ORDERED: PROPOFOL 200 MG/20 ML VIAL IV ONE (09:58)
[2017-06-08] MEDS ORDERED: SODIUM CHLORIDE 0.9% 1,000 ML IV SCH (10:00)
[2017-06-08] MEDS: SOTALOL 80 MG TABLET PO SCH (10:42)
[2017-06-08] MEDS: MAGNESIUM GLUCONATE 500 MG TABLET PO SCH (11:06)
[2017-06-08] MEDS: COLCHICINE 0.6 MG TABLET PO SCH (11:07)
[2017-06-08] MEDS: APIXABAN 5 MG TABLET PO SCH ×2 (11:07→21:20)
[2017-06-08] MEDS: GLUCOSAMINE 500 MG TABLET PO SCH ×2 (11:07→21:20)
--- NOTE | 2017-06-08 15:04 | Cardiology Progress Note ---
Assessment and Plan (1) Bradycardia Status: Acute Assessment and plan: Ms. conversion to sinus rhythm patient is now bradycardic. Likely will decrease his Betapace dose in the morning to 40 mg daily. Current Visit: Yes (2) Atrial fibrillation Status: Resolved Current Visit: No Cardiology - PN: Subj Interval history: Patient underwent cardioversion earlier today using 200 W seconds of energy and was converted to sinus rhythm. He is now had a persistent bradycardia and his heart rates in the low 40s high 30s and he is asymptomatic. I have asked that he stay overnight so that we can monitor his rhythm and to see whether we need to make further adjustments in his Betapace. He may need to be on 40 mg every morning. I think overall he is stable and doing well hopefully we will see some benefit from his cardioversion. Exam (Progress Note) - Constitutional Vitals: Period Temp Pulse Resp BP Sys/Haley Pulse Ox Last 24 Hr 97.5 F-98.6 F 38-77 14-20 99-130/53-77 95-100 Exam: General:no acute distress. alert and oriented, mood and affect are normal HEENT: no new lesions, sclerae are clear, mouth and pharynx benign Neck: supple, trachea midline, no JVD noted Lungs: no rales ronchi or wheeze is noted. pt comfortable without accesory muscle use to assist with breathing CV: PMI is nondisplaced. He has a regular rhythm with a grade 2 murmur what sounds like aortic sclerosis. His heart rate is slow. Abd: soft and nontender, BSNA, no masses. Ext: no cyanosis, clubbing or edema Neuro: grossly intact without focal neurologic deficit. Result/EKG - Labs CBC & BMP: 06/08/17 04:40 06/08/17 04:40 Labs: Laboratory Results - last 24 hr 06/08/17 06/08/17 04:40 04:40 WBC 7.3 RBC 5.32 Hgb 15.0 Hct 44.4 MCV 83.5 L MCH 28 MCHC 33.8 RDW 14.7 Plt Count 158 MPV 10.4 Neut % (Auto) 49.1 Lymph % (Auto) 37.5 [place] % (Auto) 8.5 Eos % (Auto) 3.4 Baso % (Auto) 1.0 H Neut # (Auto) 3.6 Lymph # (Auto) 2.7 [place] # (Auto) 0.6 Eos # (Auto) 0.3 Baso # (Auto) 0.1 Immature Gran % 0.5 Nucleated RBC % 0.0 Immature Gran # 0.04 Nucleated RBCs # 0.00 Sodium 140 Potassium 3.9 Chloride 104 Carbon Dioxide 29 Anion Gap 10.9 BUN 32 H Creatinine 1.40 H GFR Calculation 57 BUN/Creatinine Ratio 22.00 H Glucose 82 Calculated Osmolality 284.4 Calcium 8.9 Magnesium 1.9 Quality Measures - VTE Contraindication to Pharmacological VTE Prophylaxis: Already on Theraputic Agent , No Prophylaxis Needed
[2017-06-09 04:48] LABS: Basophils # 0.1 10*3/uL (0.0-0.2); Basophils % 0.9 % (0.0-0.8); Eosinophils # 0.2 10*3/uL (0.0-0.87); Hematocrit 40.1 VOL% (42.0-52.0); Hemoglobin 13.3 GM/DL (14.0-18.0); Immature Granulocytes % 0.3 %; Immature Granulocytes Absolute 0.02 #; Lymphocytes # 2.3 10*3/uL (1.4-4.0); Lymphocytes % 34.5 % (21.2-54.2); Mean Corpuscular HGB Conc 33.2 GM/DL (32-36); Mean Corpuscular Hemoglobin 28 PG (27-34); Mean Corpuscular Volume 84.8 FL (87-102); Mean Platelet Volume 10.9 FL (9.6-12.0); Monocytes # 0.6 10*3/uL (0.11-0.8); Monocytes % 9.5 % (1.7-12.7); Neutrophils # 3.4 10*3/uL (1.4-7.4); Neutrophils % 51.8 % (38.7-73.9); Platelet Count 147 T/CUMM (130-400); Red Blood Count 4.73 MC/CUMM (3.8-5.5); Red Cell Distribution Width 14.9 % (9.3-17.3); White Blood Count 6.6 T/CUMM (4-12)
[2017-06-09 05:14] LABS: Calcium 9.1 MG/DL (8.5-10.1); Magnesium 1.9 MG/DL (1.8-2.4); Osmolality,Calculated 284.3 MOS/KG (273-304)
[2017-06-09 08:16] VITALS: BP 120/71
[2017-06-09] MEDS: MAGNESIUM GLUCONATE 500 MG TABLET PO SCH (08:25)
[2017-06-09] MEDS: SOTALOL 80 MG TABLET PO SCH (08:25)
[2017-06-09] MEDS: APIXABAN 5 MG TABLET PO SCH (08:26)
[2017-06-09] MEDS: GLUCOSAMINE 500 MG TABLET PO SCH (08:26)
[2017-06-09] MEDS: COLCHICINE 0.6 MG TABLET PO SCH (08:49)
--- NOTE | 2017-06-09 10:05 | Discharge Summary ---
Hospital Course - Hospital Course Hospital Course: This is a 67-year-old man who presents with congestive heart failure nonischemic cardio myopathy EF in the 20% range. He has been intolerant to amiodarone in the past. He was noted to be in atrial fibrillation RVR and is now been on Eliquis for roughly 1 month. He was admitted for cardioversion electively. He was admitted and started on Betapace and because of his QT interval had to be cut back to a single dose daily. He is tolerating that dose well. His heart rate is in the high 40s low 50s. He is ambulating without difficulty. My plan is going to be to continue is otherwise with his medications and discharge him today. He has been fully instructed related activities medications precautions. He is to notify me for increasing dyspnea orthopnea PND syncope or palpitations. He is intolerant to floyd inhibitors or angiotensin receptor blockers related to worsening renal insufficiency and hyperkalemia. His heart rate is in the high 40s low 50s and will not tolerate Coreg or other beta blockers in addition to Betapace Diagnosis - Discharge Diagnosis (1) Bradycardia Status: Acute (2) Atrial fibrillation Status: Resolved Discharge Plan - Discharge Data Disposition: Disch To Home/Self Care Condition at Discharge: Stable Discharge Diet: heart healthy Hygiene: no restrictions Weight Bearing at Discharge: full weight bearing - Discharge Medications New Sotalol [Betapace] 80 mg PO DAILY #30 tablet Continue Apixaban [Eliquis] 5 mg PO BID Omeprazole 20 mg PO DAILY Glucosamine 500 mg PO BID Furosemide Tab [Lasix Tab] 40 mg PO DAILY Tramadol HCl [Tramadol Tab] 50 mg PO Q6H PRN PRN Reason: Pain Magnesium 250 mg PO DAILY Colchicine 0.6 mg PO DIRECTED Discontinued Metoprolol Tartrate Tab [Lopressor Tab] 50 mg PO BID - Follow Up or Referral Follow Up: Sebastian Harvey MD [Physician] - 2 Weeks (CBC BMP EKG on return to clinic in 2 weeks) - Forms/Instructions Exam - Constitutional Vitals: Period Temp Pulse Resp BP Sys/Haley Pulse Ox Last 24 Hr 97.5 F-98.6 F 38-53 14-20 99-120/53-71 96-100 Discharge Results Procedures and tests throughout hospitalization: Pending Orders 06/10/17 04:00 BMP w/ Mg [Basic Metabolic Panel w/Mg] IN AM Comp Blood Count Auto Diff IN AM Labs on day of discharge: Labs from last 24 hours 06/09/17 06/09/17 03:57 03:57 WBC 6.6 RBC 4.73 Hgb 13.3 L Hct 40.1 L MCV 84.8 L MCH 28 MCHC 33.2 RDW 14.9 Plt Count 147 MPV 10.9 Neut % (Auto) 51.8 Lymph % (Auto) 34.5 [place] % (Auto) 9.5 Eos % (Auto) 3.0 Baso % (Auto) 0.9 H Neut # (Auto) 3.4 Lymph # (Auto) 2.3 [place] # (Auto) 0.6 Eos # (Auto) 0.2 Baso # (Auto) 0.1 Immature Gran % 0.3 Nucleated RBC % 0.0 Immature Gran # 0.02 Nucleated RBCs # 0.00 Sodium 141 Potassium 4.0 Chloride 103 Carbon Dioxide 30 Anion Gap 12.0 BUN 27 H Creatinine 1.40 H GFR Calculation 57 BUN/Creatinine Ratio 19.00 Glucose 83 Calculated Osmolality 284.3 Calcium 9.1 Magnesium 1.9 DS: Provider Date of admission: 06/07/17 08:08 Primary care physician: Ailyn Veliz Attending physician on admission: Sebastian Harvey MD Discharging clinician: Sebastian Harvey MD
--- NOTE | 2017-06-14 09:17 | Physician Query Form ---
CLICK EDIT DOCUMENT TO SELECT QUERY ANSWER --> OK --> SIGN Phoebe Reyes RN Clinical Investigations Consultant W) [phone] (f) [phone] [email or web address]: Make your selection(s) from the choices in EACH section by typing an "x" and enter comments in the comment section. Please use your independent medical judgment in providing your response. This request does not imply that any particular answer is desired or expected. CLINICAL INDICATORS: (Providers should not edit this section) Based on documentation of "presents with congestive heart failure, EF in the 20 % range". IWO=[id number]. Pt. treated with Lasix as home medication. Please provide further specificity regarding CHF. ACUITY: ( ) Acute ( x) Chronic ( ) Acute on Chronic ( ) Clinicallly unable to determine TYPE: (x ) Systolic (HFrEF - heart failure with reduced systolic function/EF) ( ) Diastolic (HFpEF - heart failure with preserved systolic function/EF) ( ) Combined Systolic/Diastolic ( ) Other, please specify: ( ) Clinically unable to determine ( ) The patient does NOT have CHF COMMENTS: PLEASE ALSO DOCUMENT RESPONSE IN PROGRESS NOTES AND/OR DISCHARGE SUMMARY Use of terms such as suspected, likely, or probable (associated with a specific diagnosis that is being evaluated, monitored, or treated as if it exists) are acceptable and can be restated in the discharge summary if not ruled out. MTDD
== END 2017-06-09 11:28 | disposition home or self-care (01) | DRG 309 ==
LOC: N.TELEN
PROVIDERS: ADMIT Internal Medicine Interventional Cardiology; ATTEND Internal Medicine Interventional Cardiology